=== PATIENT | male | born 1950 | race Two or more races ===

== ENCOUNTER 2019-12-26 01:32 | Emergency (ER) | payer SELFPAY ==
[~2019-12-26] VITALS: Ht 175.3 cm; Wt 81.6 kg
[2019-12-26 01:40] VITALS: BP 110/70
--- NOTE | 2019-12-26 01:40 | NUR ---
ED Nurse Note: Pt brought into ED by WENDY RA 59 for c/o possible increased confusion. Per WENDY, pt was found wandering in a neighborhood after having car trouble. Pt denies any complaint or pain. Pt is slow to speak, but appears to be aaox4. Pt is tuvaluan speaking and is able to communicate clearly with tuvaluan speaking staff. Pt breathing is normal and unlabored. NAD. Pt notes he lives in [place] and drove out to [place] since his son lives here.
--- NOTE | 2019-12-26 02:02 | Emergency Room Report ---
History of Present Illness General Chief Complaint: General Complaint Source: Patient Present Illness HPI Patient is a 69-year-old male brought in by EMS after reportedly having increased confusion. Patient had been brought in by EMS. He denies any having complaints. Reports having some prior history of lung cancer. States that he had no pain anywhere. Denies any shortness of breath. Reports having driven out to this area from another area and was found wandering in a residential neighborhood. Denies any recent alcohol use. Allergies: Coded Allergies: No Known Allergies (Unverified , 12/26/19) COVID-19 Screening Contact w/high risk pt: No Recent Travel to affected area: No Experienced COVID-19 symptoms?: No COVID-19 Testing performed DISTANCE LEARNING ADMINISTRATOR: No Patient History Past Medical History: see triage record Reviewed Nursing Documentation: PMH: Agreed; PSxH: Agreed Review of Systems All Other Systems: negative except mentioned in HPI Physical Exam Vital Signs Date Time Temp Pulse Resp B/P (MAP) Pulse Ox O2 Delivery O2 Flow Rate FiO2 12/26/19 01:29 98.1 76 19 110/70 (83) 98 Room Air Sp02 EP Interpretation: reviewed, normal General Appearance: normal inspection, well appearing, no apparent distress, alert, GCS 15, Chronically Ill Head: atraumatic ENT: normal ENT inspection, hearing grossly normal, normal voice Neck: normal inspection, full range of motion, supple, no bony tend Respiratory: normal inspection, lungs clear, normal breath sounds, no respiratory distress, no retraction, no wheezing Cardiovascular #1: regular rate, rhythm, no edema Gastrointestinal: normal inspection, normal bowel sounds, non tender, soft, no guarding, no hernia Genitourinary: no CVA tenderness Musculoskeletal: normal inspection, back normal, normal range of motion Neurologic: alert, motor strength/tone normal, business management manager III-XII nml as tested, oriented x3, responsive, speech normal, normal inspection Psychiatric: normal inspection, judgement/insight normal, mood/affect normal Medical Decision Making Diagnostic Impression: Primary Impression: Lung cancer ER Course Patient presented for wandering. Differential diagnosis include was not limited to dementia, among others. Patient has a benign exam and does not appear to require any imaging or laboratory testing at this time.Patient appears to be of normal mental status however does not appear to have contact information for his family at this time. He also cannot find his vehicle. Patient noted be ambulatory without assistance. He denies any current complaints. Does not appear to be intoxicated. AUBREE was contacted for assistance with possible missing.AUBREE was able to contact patient's family member area code [phone] Juarez. Reportedly at his baseline mental status. CT imaging showed no evidence of acute intracranial hemorrhage.Laboratory testing was unremarkable. Patient will be discharged to family member. The patient is to follow up with primary care doctor in 1-2 days. Patient is advised to return if any worsening condition or if any changes in status that are concerning. This report is dictated with [employer] center maker hand software which may occasionally lead to discrepancies related to use of this software. Labs Test 12/26/19 04:30 White Blood Count 7.7 K/UL (4.8-10.8) Red Blood Count 4.10 M/UL (4.70-6.10) Hemoglobin 14.0 G/DL (14.2-18.0) Hematocrit 40.6 % (42.0-52.0) Mean Corpuscular Volume 99 FL (80-99) Mean Corpuscular Hemoglobin 34.0 PG (27.0-31.0) Mean Corpuscular Hemoglobin Concent 34.4 G/DL (32.0-36.0) Red Cell Distribution Width 12.1 % (11.6-14.8) Platelet Count 146 K/UL (150-450) Mean Platelet Volume 7.7 FL (6.5-10.1) Neutrophils (%) (Auto) 72.9 % (45.0-75.0) Lymphocytes (%) (Auto) 12.9 % (20.0-45.0) Monocytes (%) (Auto) 12.4 % (1.0-10.0) Eosinophils (%) (Auto) 0.7 % (0.0-3.0) Basophils (%) (Auto) 1.1 % (0.0-2.0) Last Vital Signs Date Time Temp Pulse Resp B/P (MAP) Pulse Ox O2 Delivery O2 Flow Rate FiO2 12/26/19 01:29 98.1 76 19 110/70 (83) 98 Room Air Status: improved Disposition: HOME, SELF-CARE Condition: Stable Cb Hyde MD Dec 26, 2019 02:02
--- NOTE | 2019-12-26 03:30 | NUR ---
ED Nurse Note: Pt is resting in bed. Will continue to monitor. Pt displays no signs of pain or any distress.
[2019-12-26 03:50] VITALS: BP 115/80
--- NOTE | 2019-12-26 04:00 | NUR ---
ED Nurse Note: [employer] bedside speaking with pt.
[2019-12-26] MEDS ORDERED: Thiamine HCl 100 MG in D5W 55 ML IVPB ONE (04:15)
[2019-12-26 04:43] LABS: BASOPHILS % (AUTO) 1.1 % (0.0-2.0); EOSINOPHILS % (AUTO) 0.7 % (0.0-3.0); HEMATOCRIT 40.6 % (42.0-52.0); LYMPHOCYTES % (AUTO) 12.9 % (20.0-45.0); MEAN CORPUSCULAR VOLUME 99 FL (80-99); MONOCYTES % (AUTO) 12.4 % (1.0-10.0); NEUTROPHILS % (AUTO) 72.9 % (45.0-75.0); PLATELET COUNT 146 K/UL (150-450); RED CELL DISTRIBUTION WIDTH 12.1 % (11.6-14.8); WHITE BLOOD COUNT 7.7 K/UL (4.8-10.8)
[2019-12-26 04:50] LABS: APPEARANCE,URINE CLEAR; BILIRUBIN, URINE NEGATIVE (NEGATIVE); GLUCOSE, URINE (UA) NEGATIVE (NEGATIVE); KETONES,URINE NEGATIVE (NEGATIVE); LEUKOCYTE ESTERASE ,URINE 1+ (NEGATIVE); NITRITE,URINE NEGATIVE (NEGATIVE); PH,URINE 5 (4.5-8.0); PROTEIN,URINE 1+ (NEGATIVE); UROBILINOGEN,URINE 1 MG/DL (0.0-1.0)
[2019-12-26 04:56] LABS: INR 1.1 (0.9-1.1)
[2019-12-26 04:58] LABS: ANION GAP 11 mmol/L (5-15); BLOOD UREA NITROGEN 35 mg/dL (7-18); CALCIUM 8.3 MG/DL (8.5-10.1); CARBON DIOXIDE 26 MMOL/L (21-32); CHLORIDE 108 MMOL/L (98-107); COLOR,URINE YELLOW; CREATININE 1.7 MG/DL (0.55-1.30); POTASSIUM 4.1 MMOL/L (3.5-5.1); SODIUM 145 MMOL/L (136-145)
[2019-12-26 05:09] LABS: ALANINE AMINOTRANSFERASE 36 U/L (12-78); ALBUMIN/GLOBULIN RATIO 1.3 (1.0-2.7); ALKALINE PHOSPHATASE 67 U/L (46-116); ASPARTATE AMINO TRANSFERASE 74 U/L (15-37); BILIRUBIN,TOTAL 0.7 MG/DL (0.2-1.0)
--- NOTE | 2019-12-26 05:40 | NUR ---
ED Nurse Note: Pt is very cooperative. Pt ambulated to restroom with steady gait. NAD.
--- NOTE | 2019-12-26 06:10 | Diagnostic Imaging Report ---
EXAM: CT Head Without Intravenous Contrast CLINICAL HISTORY: AMS TECHNIQUE: Axial computed tomography images of the head/brain without intravenous contrast. CTDI is 53 mGy and DLP is 1126 mGy-cm. One or more of the following dose reduction techniques were used: automated exposure control, adjustment of the mA and/or kV according to patient size, use of iterative reconstruction technique. COMPARISON: No relevant prior studies available. FINDINGS: There is no acute intracranial hemorrhage. The territorial padilla-white matter differentiation is maintained throughout. There is no midline shift or other mass effect. The ventricles and sulci are commensurate with age. There is age-related cerebral volume loss. There is nonspecific white matter hypoattenuation, indicative of chronic ischemic microangiopathy. The visualized orbits appear grossly unremarkable. The calvarium is intact. Mucosal thickening of the ethmoid air cells. The remaining visualized paranasal sinuses and mastoid air cells are grossly clear. IMPRESSION: No acute intracranial hemorrhage, midline shift, or mass effect. Sinus inflammatory changes, as described.
--- NOTE | 2019-12-26 06:15 | NUR ---
ED Nurse Note: Spoke with pt family member. 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
[2019-12-26 06:30] VITALS: BP 109/78
--- NOTE | 2019-12-26 06:30 | NUR ---
ED Nurse Note: Pt is sleeping in bed, NAD. Vital signs are stable. Will continue to monitor. 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 BARBARA has cleared pt for DC.
--- NOTE | 2019-12-26 07:12 | NUR ---
HAND-OFF: Report given to SIMÓN Garza.
[2019-12-26 08:00] VITALS: BP 109/78
--- NOTE | 2019-12-26 08:00 | NUR ---
ER DISCHARGE NOTE: Patient is cleared to be discharged per ERMD, pt is aox4, on room air, with stable vital signs. pt was given dc instructions, pt was able to verbalize understanding, pt id band and iv site removed without complications. pt is able to ambulate with steady gait. pt took all belongings,picked up by family members
== END 2019-12-26 08:00 | disposition home or self-care (01) ==
LOC: EDBD 01:32 → EMR 02:18
DX: R41.0 Disorientation, unspecified (principal); Z85.118 Personal history of other malignant neoplasm of bronchus and lung
CPT/HCPCS: 36415; 70450; 80053; 80307; 81003; 84443; 84484; 85025; 85610; 85730; 96365; 99284; G0480; J7040